=== PATIENT | male | born 1995 | race Caucasian/White ===

== ENCOUNTER 2020-03-21 17:49 | Emergency (ER) | payer MEDICAID ==
[~2020-03-21] VITALS: Ht 180.3 cm; Wt 68.0 kg
[2020-03-21] MEDS ORDERED: AMOXICILLIN250 MG PO (19:26)
== END 2020-03-21 19:50 | disposition home or self-care (01) ==
LOC: ED 17:49
DX: J32.9 Chronic sinusitis, unspecified (principal); Z20.828 Contact with and (suspected) exposure to other viral communicable diseases; F17.200 Nicotine dependence, unspecified, uncomplicated